=== PATIENT | female | born 1975 | race Caucasian/White ===

== ENCOUNTER 2016-12-25 02:20 | Inpatient (IN) ==
[2016-12-19 11:10] LABS: MANUAL DIFF NEEDED? NO
[2016-12-19 11:14] LABS: BASO% 0.3 % (0.0-0.8); EOS# 0.24 X1000 (0.0-0.7); EOS% 2.2 % (0.0-10.0); HEMATOCRIT 40.8 % (37.0-47.0); HEMOGLOBIN 13.7 g/dL (12.0-16.0); IMM GRAN# 0.03 X1000 (0.0-0.04); IMM GRAN% 0.3 % (0.0-0.5); LYMPH# 3.73 X1000 (1.2-3.4); LYMPH% 33.6 % (20.5-51.1); MCH 30.4 PG (27-31); MCHC 33.6 g/dL (33-37); MCV 90.5 FL (81-99); MONO# 0.57 X1000 (0.11-0.59); MONO% 5.1 % (1.7-9.3); NEUT% 58.5 % (42.2-75.2); PLT 360 X1000 (130-400); RBC 4.51 XMIL (4.2-5.4)
[2016-12-19 11:44] LABS: AGAP 15; BUN 21 mg/dL (8-22); CALCIUM 9.2 mg/dL (8.8-10.2); CHLORIDE 95 mmol/L (98-107); COSMO 283; POTASSIUM 3.5 mmol/L (3.5-5.1); SODIUM 140 mmol/L (136-145); TCO2 30 mmol/L (25-35)
[2016-12-24 11:19] LABS: MANUAL DIFF NEEDED? NO; URINE MICRO REVIEW NEEDED? NO; URINE SOURCE VOIDED
[2016-12-24 11:54] LABS: BILIRUBIN URINE NEGATIVE (NEGATIVE); BLOOD URINE NEGATIVE (NEGATIVE); COLOR YELLOW; GLUCOSE URINE NEGATIVE (NEGATIVE); LEUKOCYTES URINE NEGATIVE (NEGATIVE); NITRITE URINE NEGATIVE (NEGATIVE); PH URINE 6.5; PROTEIN URINE TRACE mg/dL (NEGATIVE); SP GRAVITY URINE 1.034; TURBIDITY URINE CLEAR (CLEAR); UR EPITHELIAL CELLS <10 /HPF (<10); URINE BACTERIA 1+ /HPF; URINE RBC <10 /HPF (<10); URINE WBC <10 /HPF (<10); UROBILINOGEN URINE NORMAL (NORMAL)
[2016-12-24 12:00] LABS: BASO% 0.1 % (0.0-0.8); EOS# 0.19 X1000 (0.0-0.7); EOS% 2.1 % (0.0-10.0); HEMATOCRIT 38.1 % (37.0-47.0); HEMOGLOBIN 12.4 g/dL (12.0-16.0); IMM GRAN# 0.02 X1000 (0.0-0.04); IMM GRAN% 0.2 % (0.0-0.5); LYMPH% 38.1 % (20.5-51.1); MCH 30.5 PG (27-31); MCHC 32.5 g/dL (33-37); MCV 93.8 FL (81-99); MONO# 0.44 X1000 (0.11-0.59); MONO% 4.8 % (1.7-9.3); MPV 10.7 FL (7.4-10.4); NEUT% 54.7 % (42.2-75.2); PLT 301 X1000 (130-400); RBC 4.06 XMIL (4.2-5.4)
[2016-12-25] MEDS ORDERED: LR 1,000 ML ONE ×2 (05:45→11:25)
[2016-12-25] MEDS ORDERED: VANCOMYCIN 1 GM/NS 250 ML ONE (05:45)
[2016-12-25] MEDS ORDERED: REGLAN ONE (05:45)
[2016-12-25] MEDS ORDERED: KEFZOL 1 GM/D5W 0 ML ONE (05:45)
[2016-12-25] MEDS ORDERED: PEPCID ONE (05:45)
[2016-12-25] MEDS ORDERED: TRANSDERM-SCOP ONE (06:35)
[2016-12-25] MEDS ORDERED: KEFZOL ONE (07:06)
[2016-12-25 07:53] LABS: URINE MICRO REVIEW NEEDED? NO; URINE SOURCE CATH
[2016-12-25 08:04] LABS: BILIRUBIN URINE NEGATIVE (NEGATIVE); BLOOD URINE NEGATIVE (NEGATIVE); COLOR YELLOW; GLUCOSE URINE NEGATIVE (NEGATIVE); LEUKOCYTES URINE NEGATIVE (NEGATIVE); NITRITE URINE NEGATIVE (NEGATIVE); PROTEIN URINE NEGATIVE (NEGATIVE); TURBIDITY URINE CLEAR (CLEAR); UROBILINOGEN URINE NORMAL (NORMAL)
[2016-12-25 08:08] LABS: UR EPITHELIAL CELLS <10 /HPF (<10); URINE BACTERIA NEGATIVE /HPF; URINE RBC <10 /HPF (<10); URINE WBC <10 /HPF (<10)
[2016-12-25] MEDS ORDERED: MORPHINE ONE (11:10)
[2016-12-25] MEDS ORDERED: VERSED ONE (11:10)
[2016-12-25] MEDS ORDERED: FENTANYL ONE ×2 (11:10→11:13)
--- NOTE | 2016-12-25 11:10 | OPERATIVE NOTE ---
PROCEDURE DATE: 12/25/2016 PREOPERATIVE DIAGNOSES: 1. Incisional ventral hernia. 2. Uterine fibroid. 3. BMI greater than 50. POSTOPERATIVE DIAGNOSES: 1. Incisional ventral hernia. 2. Uterine fibroid. 3. BMI greater than 50. PROCEDURE: 1. Open repair of incisional ventral hernia with mesh. 2. Abdominal hysterectomy with bilateral salpingectomy (done by Dr. Sam). SURGEON: Nikhil Abraham MD. HOME CARE ASSISTANT: Dr. Sam (he performed the hysterectomy and assisted with the repair of the hernia. Please see his dictation for the aspects of the hysterectomy). ANESTHESIA: General endotracheal. INTRAOPERATIVE FINDINGS: Uterine fibroid as noted above. Her fascia was also very tenuous the entirety of the whole abdominal wall. COMPLICATION: None at time of dictation. ESTIMATED BLOOD LOSS: 300 mL. SPECIMENS REMOVED: Uterus. BRIEF HISTORY: The patient is a 41-year-old female presenting with incisional hernia. She also had a large uterine fibroid and wanted both these repaired. The risks , benefits, and alternatives were discussed. Patient's BMI over 50 complicated the issue and made her risk for recurrence higher. This was discussed extensively with the patient. DESCRIPTION OF THE PROCEDURE: After informed consent was obtained, patient brought to operative theatre and placed on the operating table in supine position. General endotracheal anesthesia was then performed without complication. A formal time-out was then performed confirming patient, date, procedure. All were in agreement. At that time, attention was given to the abdomen. A standard midline incision was made through her previous scar, carried down to the subcutaneous tissue where we encountered the hernia and the hernia sac. We opened it up. We were able to reduce the omentum into the cavity. The defect itself initially measured approximately 8 cm in maximal diameter. To facilitate the hysterectomy aspect we completed a midline incision all the way down to just above the pubic symphysis. Dr. Sam performed the hysterectomy with myself assisting. Please see the details of that procedure on his note. After we had done the hysterectomy we turned our attention to the abdomen. We copiously irrigated out the abdomen until the suction fluid was clear with antibiotic containing saline. We grasped the fascia. The fascia was able to come together in the midline and to avoid contamination we elected to place an overlay mesh. We closed the fascia withinterrupted #1 Vicryl with good results. The fascia itself was very tenuous the whole length of the abdominal wall. We then created a piece of mesh that we measured 20 cm which would incorporate the whole incision. Placed it on an overlay technique, secured it in place with 2-0 Prolene circumferentially. Closed the skin in layers with 3-0 Vicryl and julius for the skin. The patient tolerated the procedure well and had an abdominal binder placed. She will be observed overnight. Again please see Dr. Sam's dictation for his aspect of the case. [facility]
[2016-12-25] MEDS ORDERED: DIPRIVAN 1% ONE (11:11)
[2016-12-25] MEDS ORDERED: NEOSTIGMINE ONE (11:21)
[2016-12-25] MEDS ORDERED: LABETALOL (DOSE) ONE (11:21)
[2016-12-25] MEDS ORDERED: SODIUM CHLORIDE 0.9% 20 ML ONE (11:21)
[2016-12-25] MEDS ORDERED: PHENERGAN ONE (11:22)
[2016-12-25] MEDS ORDERED: QUELICIN (DOSE) ONE (11:22)
[2016-12-25] MEDS ORDERED: LR 3,000 ML ONE (11:22)
[2016-12-25] MEDS ORDERED: ZOFRAN ONE (11:22)
[2016-12-25] MEDS ORDERED: XYLOCAINE-MPF 2% ONE (11:22)
[2016-12-25] MEDS ORDERED: NORCURON ONE (11:22)
[2016-12-25] MEDS ORDERED: ROBINUL ONE (11:22)
[2016-12-25] MEDS ORDERED: LABETALOL ONE (11:25)
--- NOTE | 2016-12-25 11:25 | OPERATIVE NOTE ---
PROCEDURE DATE: 12/25/2016 PREOPERATIVE DIAGNOSIS: Incisional ventral hernia, uterine fibroids. POSTOPERATIVE DIAGNOSIS: Incisional ventral hernia, uterine fibroids. PROCEDURE: An open repair of ventral hernia with mesh per Dr. Abraham. Supracervical hysterectomy, bilateral salpingectomy, by myself. SURGEON: Leigh/Flaco. ANESTHESIA: General. FINDINGS: Fibroid uterus. COMPLICATION: None apparent. ESTIMATED BLOOD LOSS: 300 mL. SPECIMENS REMOVED: Uterus and bilateral fallopian tubes. DRAINS: None. OPERATIVE COURSE: After vertical midline skin incision was made and a ventral hernia was reduced per Dr. Abraham, a [place] retractor was then used to achieve adequate visualization of the operative site. The uterine fundus was grasped with a [place] tenaculum. Bilateral tubes and ovaries were identified and right fallopian tube was grasped with a [place] clamp and elevated and resected using a LigaSure. Contralateral side was performed in a similar manner. LigaSure was then used to ligate both the round ligaments as well as the IP ligament. The broad ligament was then transected using a LigaSure down to the level of the uterine arteries. At this point straight Ying clamps were then used to suture ligate the uterine artery pedicles. After the uterosacral ligaments were suture ligated using straight Betty clamps, it was decided inadequate visualization secondary to patient's body habitus precluded removal of the cervix and a supracervical hysterectomy completed as specimen sent to Pathology. Please refer to Dr. Abraham's dictation for the remainder of closure of the fascia and repair of ventral hernia.
[2016-12-25] MEDS: MORPHINE IV PRN ×5 (13:00→22:49)
[2016-12-25] MEDS: LR 1,000 ML IV SCH ×2 (16:18→22:20)
[2016-12-25] MEDS ORDERED: PNEUMOVAX 23 IM ONE (18:30)
[2016-12-25] MEDS: NORCO-10 PO PRN (19:47)
[2016-12-25] MEDS ORDERED: KLONOPIN PO PRN (20:10)
[2016-12-25] MEDS ORDERED: ALBUTEROL SULFATE 90 MCG IH PRN (20:10)
[2016-12-25] MEDS ORDERED: VITAMIN D PO SCH ×2 (20:15→21:00)
[2016-12-25] MEDS ORDERED: CYANOCOBALAMIN IM SCH (20:15)
[2016-12-25] MEDS: ZOFRAN IV PRN (20:36)
[2016-12-25] MEDS: HEPARIN SUBQ SCH (22:20)
[2016-12-25] MEDS: PERIDEX MT SCH (22:21)
[2016-12-25] MEDS: LYRICA PO SCH (22:25)
[2016-12-25] MEDS: SYNTHROID PO SCH (22:37)
[2016-12-25] MEDS: CARDIZEM CD PO SCH (22:37)
[2016-12-25] MEDS: PROZAC PO SCH (22:38)
[2016-12-26] MEDS: MORPHINE IV PRN ×5 (01:28→21:40)
[2016-12-26] MEDS: ZOFRAN IV PRN ×2 (01:32→09:55)
[2016-12-26] MEDS: HEPARIN SUBQ SCH ×3 (04:41→21:41)
[2016-12-26] MEDS ORDERED: CATAFLAM PO PRN (06:15)
[2016-12-26] MEDS ORDERED: ZOFRAN PO PRN (06:15)
[2016-12-26] MEDS ORDERED: ESTRACE VAGINAL CREAM VAG SCH (06:15)
[2016-12-26] MEDS: LR 1,000 ML IV SCH ×2 (06:41→13:07)
--- NOTE | 2016-12-26 06:54 | PROGRESS NOTE ---
DATE: 12/26/2016 SUBJECTIVE: The patient is doing well. She is still having some issues with pain control but otherwise no major issues. OBJECTIVE: Vital Signs: Patient is currently afebrile. Her vital signs are stable. General Examination: No acute distress. Cardiovascular: Regular rate and rhythm. Lungs: Grossly clear. Abdomen: Obese with abdominal binder in place. Appropriately tender. Extremities: No change. ASSESSMENT/PLAN: A 41-year-old, female, postoperative day 1 from an open hysterectomy and open ventral hernia repair. Postoperative state. At this time, we will restart all patient's home medications. We will advance her diet as tolerated. We will mobilize the patient. We will base discharge off of Dr. Sam's recommendation. We will also base [place] catheter removal off of Dr. Sam's recommendation. Hopefully, we can discharge the patient home.
[2016-12-26] MEDS ORDERED: FLONASE NAS SCH (09:00)
[2016-12-26] MEDS ORDERED: KLOR-CON POWDER PACKET PO SCH (09:00)
[2016-12-26] MEDS ORDERED: LASIX PO SCH (09:00)
[2016-12-26] MEDS ORDERED: GLUCOPHAGE XR PO SCH (09:00)
[2016-12-26] MEDS ORDERED: NON-FORMULARY MED (Buprenorphine [Butrans] 1 EACH) TD SCH (09:00)
[2016-12-26] MEDS: NORCO-10 PO SCH ×3 (10:00→17:34)
[2016-12-26] MEDS: ZANAFLEX PO SCH ×3 (10:00→17:33)
[2016-12-26] MEDS: LYRICA PO SCH ×2 (10:13→21:40)
[2016-12-26] MEDS: PERIDEX MT SCH ×2 (10:15→21:41)
[2016-12-26] MEDS: CARDIZEM CD PO SCH (21:40)
[2016-12-26] MEDS: PROZAC PO SCH (21:40)
[2016-12-26] MEDS: SYNTHROID PO SCH (21:40)
[2016-12-27] MEDS: MORPHINE IV PRN ×4 (00:11→09:09)
[2016-12-27] MEDS: NORCO-10 PO PRN (02:19)
[2016-12-27] MEDS: LR 1,000 ML IV SCH (05:42)
[2016-12-27] MEDS: HEPARIN SUBQ SCH (06:06)
--- NOTE | 2016-12-27 06:36 | PROGRESS NOTE ---
DATE: 12/27/2016 SUBJECTIVE: Patient doing well. Pain is better controlled. OBJECTIVE: Vital Signs: Patient is currently afebrile. Her vital signs are stable. General Examination: No acute distress. Cardiovascular: Regular rate and rhythm. Lungs: Grossly clear. Abdomen: Obese with abdominal binder in place. Appropriately tender. Extremities: No changes. ASSESSMENT AND PLAN: A 41-year-old, female, postoperative day 2 from open hysterectomy and open ventral hernia repair. Postoperative state. At this time, patient can be discharged home. We will put discharge orders in for after breakfast. We will follow up the patient in 1-2 weeks in the office.
[2016-12-27 07:50] VITALS: BP 132/56
== END 2016-12-27 10:51 | disposition home or self-care (01) | DRG 742 ==
LOC: SURHOLD 02:20 → 4N 11:28
PROVIDERS: ADMIT Surgery; ATTEND Obstetrics & Gynecology
PROC: 0WUF0JZ Supplement Abdominal Wall with Synthetic Substitute, Open Approach (ICD-10-PCS; principal; 2016-12-25 07:15)
PROC: 0UT90ZZ Resection of Uterus, Open Approach (ICD-10-PCS; 2016-12-25 07:15)
PROC: 0UT70ZZ Resection of Bilateral Fallopian Tubes, Open Approach (ICD-10-PCS; 2016-12-25 07:15)
DX: D25.9 Leiomyoma of uterus, unspecified (principal); Z68.43 Body mass index [BMI] 50.0-59.9, adult; I10 Essential (primary) hypertension; E11.9 Type 2 diabetes mellitus without complications; K43.2 Incisional hernia without obstruction or gangrene; J45.909 Unspecified asthma, uncomplicated; M19.90 Unspecified osteoarthritis, unspecified site; F32.9 Major depressive disorder, single episode, unspecified; F41.9 Anxiety disorder, unspecified; Z23 Encounter for immunization; Z79.899 Other long term (current) drug therapy; Z79.84 Long term (current) use of oral hypoglycemic drugs; Z79.890 Hormone replacement therapy; E66.01 Morbid (severe) obesity due to excess calories; K21.9 Gastro-esophageal reflux disease without esophagitis; M79.7 Fibromyalgia; E03.9 Hypothyroidism, unspecified
CPT/HCPCS: 80048; 81001; 81025; 82948; 84703; 85025; 86850; 86900; 86901; 88302; 88307; 90732; 94761; 94799; J0330; J0690; J1644; J2250; J2270; J2405; J2550; J3010; J3370; J7120; J2710